=== PATIENT | male | born 1965 | race Caucasian/White ===

== ENCOUNTER → 2021-01-01 10:43 | Outpatient (CLI) | payer OTHER | END | disposition home or self-care (01) | LOC: LAB 10:43 | PROVIDERS: ATTEND Urology | DX: N30.00 Acute cystitis without hematuria (principal) ==

== ENCOUNTER 2021-01-04 07:21 | Outpatient (CLI) | payer OTHER | END 2021-01-04 07:32 | disposition home or self-care (01) | LOC: LAB 07:21 | PROVIDERS: ATTEND Urology | DX: R97.21 Rising PSA following treatment for malignant neoplasm of prostate (principal) ==